=== PATIENT | female | born 1965 | race Caucasian/White ===

== ENCOUNTER 2019-05-17 10:22 | Inpatient (IN) ==
[2019-05-17] MEDS ORDERED: Albuterol 2.5 MG/3 ML NEBULIZER IH PRN (10:42)
[2019-05-17] MEDS ORDERED: Ringers Solution, Lactated 1,000 ML IVC SCH (10:45)
[2019-05-17] MEDS ORDERED: Acetaminophen IV 1,000 MG/100 ML INFUS..BTL IVPB ONE (11:05)
[2019-05-17] MEDS ORDERED: *HR* HYDROmorphone (PF) 1 MG/ML SYRINGE IVP PRN ×2 (11:09)
[2019-05-17] MEDS ORDERED: *HR* Promethazine 25 MG/ML VIAL IVP PRN (11:09)
[2019-05-17] MEDS ORDERED: *HR* Meperidine 25 MG/ML SYRINGE IVP PRN (11:09)
[2019-05-17] MEDS ORDERED: Ondansetron 4 MG/2 ML VIAL IVP ONE (11:09)
[2019-05-17] MEDS ORDERED: MORPHINE SULFATE EP SCH (11:15)
[2019-05-17] MEDS ORDERED: SODIUM CHLORIDE 0.9% EP SCH (11:15)
[2019-05-17] MEDS ORDERED: Dexamethasone 4 MG/ML VIAL ONE ×2 (11:38→12:16)
[2019-05-17] MEDS ORDERED: Lidocaine -MPF 2% 2 ML VIAL ONE ×2 (11:38→12:16)
[2019-05-17] MEDS ORDERED: *HR* FentaNYL (PF) 100 MCG/2 ML VIAL ONE ×3 (11:38→14:17)
[2019-05-17] MEDS ORDERED: *HR* Midazolam HCl 2 MG/2 ML VIAL ONE ×3 (11:38→13:29)
[2019-05-17] MEDS ORDERED: Ondansetron 4 MG/2 ML VIAL ONE ×2 (11:38→12:16)
[2019-05-17] MEDS ORDERED: *HR* Propofol 200 MG/20 ML VIAL IVP ONE ×2 (11:38→12:17)
[2019-05-17] MEDS ORDERED: EPHEDrine 50 MG/ML VIAL ONE ×2 (11:39→14:37)
[2019-05-17] MEDS ORDERED: Morphine Sulfate/PF 10mg/10mL 30 MG in 0.9 % Sodium Chloride 60 ML EP SCH ×2 (12:00→17:45)
[2019-05-17] MEDS ORDERED: *HR* Succinylcholine 200 MG/10 ML VIAL IVP ONE (12:17)
[2019-05-17] MEDS ORDERED: *HR* Rocuronium Bromide 50 MG/5 ML VIAL ONE ×3 (12:17→15:10)
[2019-05-17] MEDS ORDERED: ROPIVACAINE/PF/NS 0.25% 1 EACH SYRINGE INTRAART ONE (13:14)
[2019-05-17] MEDS ORDERED: Ropivacaine/PF 0.5% 30 ML VIAL ONE (13:16)
[2019-05-17] MEDS ORDERED: Ropivacaine/PF 0.2% 200 ML EP SCH (13:30)
[2019-05-17] MEDS ORDERED: *HR* PHENYLEPHRINE 1,000 MCG/10 ML SYRINGE IVP ONE ×2 (14:26→17:11)
[2019-05-17] MEDS ORDERED: Ringers Solution, Lactated 250 ML IVC PRN (17:31)
[2019-05-17 17:51] LABS: Hematocrit 41.7 % (35.3-44.9); Hemoglobin 13.7 g/dL (11.5-15.4)
[2019-05-17] MEDS: Ringers Solution, Lactated 1,000 ML IVC SCH (22:56)
[2019-05-18 03:14] LABS: Basophils % 0.1 %; Hematocrit 36.6 % (35.3-44.9); Hemoglobin 12.6 g/dL (11.5-15.4); Immature Granulocytes % 0.4 % (0-4); Lymphocytes # 0.9 K/mcL (0.6-4.6); Lymphocytes % 6.9 %; Mean Corpuscular HGB Conc 34.4 g/dL (31.6-35.5); Mean Corpuscular Hemoglobin 31.3 pg (28.0-33.3); Mean Corpuscular Volume 90.8 fL (83.0-100.0); Monocytes # 0.4 K/mcL (0.0-1.3); Monocytes % 3.4 %; Neutrophils # 11.3 K/mcL (1.6-8.9); Platelet Count 273 K/mcL (140-400); Red Blood Count 4.03 M/mcL (3.82-4.97); Segmented Neutrophils % 89.2 %; White Blood Count 12.6 K/mcL (4.3-11.1)
[2019-05-18] MEDS ORDERED: *HR* HYDROmorphone (PF) 1 MG/ML SYRINGE IVP PRN (03:45)
[2019-05-18 03:56] LABS: BUN/Creatinine Ratio 20 (6-26); Blood Urea Nitrogen 13 mg/dL (6-20); Calcium 8.9 mg/dL (8.6-10.3); Carbon Dioxide 25 mEq/L (23-29); Chloride 105 mEq/L (98-107); Glucose 130 mg/dL (70-105); Osmolality,Calculated 290 (280-300); Sodium 139 mEq/L (136-145); eGFR For African Americans > 60 (> 60); eGFR For Non-African Americans > 60 (> 60)
[2019-05-18] MEDS ORDERED: Naloxone 0.4 MG/ML INJ IVP PRN (08:21)
[2019-05-18] MEDS: Ringers Solution, Lactated 1,000 ML IVC SCH (09:13)
[2019-05-18] MEDS ORDERED: Ertapenem 1,000 MG in 0.9 % Sodium Chloride Mini Bag 100 ML IVPB ONE (10:43)
[2019-05-18] MEDS ORDERED: Ondansetron 4 MG/2 ML VIAL IVP PRN (11:34)
[2019-05-18] MEDS: D5% in 0.45% NACL 1,000 ML IVC SCH (14:11)
[2019-05-19 05:46] LABS: Basophils # 0.1 K/mcL (0.0-0.2); Basophils % 0.7 %; Eosinophils # 0.1 K/mcL (0.0-0.6); Eosinophils % 0.7 %; Hematocrit 35.1 % (35.3-44.9); Immature Granulocytes % 0.3 % (0-4); Lymphocytes # 1.9 K/mcL (0.6-4.6); Lymphocytes % 25.5 %; Mean Corpuscular HGB Conc 34.2 g/dL (31.6-35.5); Mean Corpuscular Hemoglobin 31.4 pg (28.0-33.3); Mean Corpuscular Volume 91.9 fL (83.0-100.0); Mean Platelet Volume 9.6 fL (9.4-12.4); Monocytes # 0.6 K/mcL (0.0-1.3); Monocytes % 7.7 %; Neutrophils # 4.9 K/mcL (1.6-8.9); Platelet Count 253 K/mcL (140-400); Red Blood Count 3.82 M/mcL (3.82-4.97); Red Cell Distribution Width 14.2 % (11.5-14.5); Segmented Neutrophils % 65.1 %; White Blood Count 7.5 K/mcL (4.3-11.1)
[2019-05-19] MEDS: D5% in 0.45% NACL 1,000 ML IVC SCH ×2 (10:20→11:40)
[2019-05-19] MEDS: Morphine Sulfate/PF 10mg/10mL 30 MG in 0.9 % Sodium Chloride 60 ML EP SCH (10:27)
[2019-05-20] MEDS: Morphine Sulfate/PF 10mg/10mL 30 MG in 0.9 % Sodium Chloride 60 ML EP SCH ×2 (07:41→23:02)
[2019-05-20] MEDS: D5% in 0.45% NACL 1,000 ML IVC SCH (08:51)
[2019-05-20] MEDS ORDERED: Acetaminophen 325 MG TABLET PO PRN (11:38)
[2019-05-20] MEDS ORDERED: *HR* OxyCODONE Immed Rel 5 MG TABLET PO PRN (11:38)
[2019-05-20] MEDS ORDERED: *HR* HYDROmorphone (PF) 1 MG/ML SYRINGE IVP PRN (11:40)
[2019-05-21 07:04] VITALS: BP 108/72
== END 2019-05-21 11:56 | disposition home or self-care (01) | DRG 330 ==
LOC: SAMDAY 10:22 → 3ANU 19:39
PROVIDERS: ADMIT Surgery; ATTEND Surgery